=== PATIENT | male | born 1950 | race Caucasian/White ===

== ENCOUNTER 2017-06-10 10:01 | Day surgery (SDC) | payer MEDICARE, BC ==
[~2017-06-10] VITALS: Ht 170.2 cm; Wt 71.4 kg
[~2017-06-10 10:01] MED LIST: ASPI325 PO; FISH OIL 1,2001 EACH; Multiple Vitam1 EAC1 PO; PANT40 PO
== END 2017-06-10 12:12 | disposition home or self-care (01) ==
LOC: ORSCSDS 10:01
PROVIDERS: Internal Medicine Gastroenterology
PROC: 0DB58ZX Excision of Esophagus, Via Natural or Artificial Opening Endoscopic, Diagnostic (ICD-10-PCS; principal; 2017-06-10 11:30)
PROC: 0DB68ZX Excision of Stomach, Via Natural or Artificial Opening Endoscopic, Diagnostic (ICD-10-PCS; principal; 2017-06-10 11:30)
DX: K21.9 Gastro-esophageal reflux disease without esophagitis (principal); I25.10 Atherosclerotic heart disease of native coronary artery without angina pectoris; K29.80 Duodenitis without bleeding; K22.2 Esophageal obstruction; R13.10 Dysphagia, unspecified; E78.00 Pure hypercholesterolemia, unspecified; K44.9 Diaphragmatic hernia without obstruction or gangrene; Z79.82 Long term (current) use of aspirin
CPT/HCPCS: 88305; 88342; J7120

== ENCOUNTER 2022-10-03 13:41 | Emergency (ER) | payer MEDICARE, BC ==
[~2022-10-03] VITALS: Ht 177.8 cm; Wt 72.6 kg
[~2022-10-03 13:41] MED LIST changes: +OMEP20ER
[2022-10-03 14:27] LABS: Albumin, Blood 3.9 g/dL (3.4-5.0); Albumin/Globulin Ratio 1.3 (0.8-1.8); BASOPHILS ABSOLUTE AUTO 0.08 K/mm3 (0.00-0.23); BASOPHILS PERCENT AUTO 1 % (0-2); Bilirubin, Total 0.6 mg/dL (0.1-1.0); Bun/Creatinine Ratio 14.7 (12.0-20.0); Calcium, Blood 8.9 mg/dL (8.5-10.1); Creatinine, Blood 0.88 mg/dL (0.60-1.20); EOSINOPHILS ABSOLUTE AUTO 0.22 K/mm3 (0.00-0.68); EOSINOPHILS PERCENT AUTO 3 % (0-6); Globulin, Blood 3.1 g/dL (2.2-4.0); Hematocrit 45.1 % (37.0-53.0); Hemoglobin 15.4 g/dL (13.5-17.5); IMMATURE GRAN ABSOLUTE AUTO 0.08 K/mm3 (0.00-0.10); IMMATURE GRAN PERCENT AUTO 1 % (0-1); LYMPHOCYTES ABSOLUTE AUTO 2.27 K/mm3 (0.84-5.20); LYMPHOCYTES PERCENT AUTO 26 % (21-46); MONOCYTES ABSOLUTE AUTO 0.77 K/mm3 (0.16-1.47); MONOCYTES PERCENT AUTO 9 % (4-13); Mean Corpuscular HGB 29.7 pg (26.0-34.0); Mean Corpuscular HGB Conc 34.1 g/dL (31.5-36.5); Mean Corpuscular Volume 87 fL (80-100); NEUTROPHILS ABSOLUTE AUTO 5.39 K/mm3 (1.96-9.15); NEUTROPHILS PERCENT AUTO 61 % (41-73); RDW Coefficient Variation 13.2 % (11.7-14.2); RDW Standard Deviation 42.1 fL (35.1-46.3); Red Blood Cell Count 5.18 M/mm3 (4.30-5.90); White Blood Cell Count 8.81 K/mm3 (4.00-11.30)
[2022-10-03 15:02] LABS: Mean Platelet Volume 11.4 fL (9.1-12.4); Platelet Count 180 K/mm3 (150-400)
[2022-10-03 15:15] VITALS: BP 141/65
== END 2022-10-03 15:48 | disposition short-term general hospital (02) ==
LOC: ER 13:41
PROVIDERS: Emergency Medicine
DX: S02.19XB Other fracture of base of skull, initial encounter for open fracture (principal); S06.6X0A Traumatic subarachnoid hemorrhage without loss of consciousness, initial encounter; S02.0XXB Fracture of vault of skull, initial encounter for open fracture; S01.01XA Laceration without foreign body of scalp, initial encounter; G93.89 Other specified disorders of brain; W19.XXXA Unspecified fall, initial encounter
CPT/HCPCS: 12002; 70450; 71260; 72125; 80053; 84484; 85025; 90471; 90714; 93005; 93010; 96365-59; 96375-59; 99285-25; J0690; J1953; Q9967

== ENCOUNTER 2023-02-20 18:17 | Emergency (ER) | payer MEDICARE, BC ==
[~2023-02-20] VITALS: Ht 170.2 cm; Wt 72.6 kg
[2023-02-20 18:29] VITALS: BP 156/70
== END 2023-02-20 20:00 | disposition home or self-care (01) ==
LOC: ER 18:17
DX: S09.90XA Unspecified injury of head, initial encounter (principal); W22.8XXA Striking against or struck by other objects, initial encounter; Z79.899 Other long term (current) drug therapy
CPT/HCPCS: 99282

== ENCOUNTER 2023-05-06 09:12 | Emergency (ER) | payer MEDICARE, BC ==
[~2023-05-06] VITALS: Ht 170.2 cm; Wt 72.6 kg
[2023-05-06 10:28] LABS: BASOPHILS ABSOLUTE AUTO 0.07 K/mm3 (0.00-0.23); BASOPHILS PERCENT AUTO 1 % (0-2); EOSINOPHILS ABSOLUTE AUTO 0.14 K/mm3 (0.00-0.68); EOSINOPHILS PERCENT AUTO 2 % (0-6); Hematocrit 49.8 % (37.0-53.0); Hemoglobin 16.3 g/dL (13.5-17.5); IMMATURE GRAN ABSOLUTE AUTO 0.02 K/mm3 (0.00-0.10); IMMATURE GRAN PERCENT AUTO 0 % (0-1); LYMPHOCYTES ABSOLUTE AUTO 1.37 K/mm3 (0.84-5.20); LYMPHOCYTES PERCENT AUTO 23 % (21-46); MONOCYTES PERCENT AUTO 10 % (4-13); Mean Corpuscular HGB 29.8 pg (26.0-34.0); Mean Corpuscular HGB Conc 32.7 g/dL (31.5-36.5); Mean Corpuscular Volume 91 fL (80-100); Mean Platelet Volume 10.8 fL (9.1-12.4); NEUTROPHILS ABSOLUTE AUTO 3.66 K/mm3 (1.96-9.15); NEUTROPHILS PERCENT AUTO 63 % (41-73); Platelet Count 222 K/mm3 (150-400); RDW Coefficient Variation 13.6 % (11.7-14.2); RDW Standard Deviation 46.4 fL (35.1-46.3); Red Blood Cell Count 5.47 M/mm3 (4.30-5.90); White Blood Cell Count 5.86 K/mm3 (4.00-11.30)
[2023-05-06 10:52] LABS: Albumin/Globulin Ratio 1.2 (0.8-1.8); Bilirubin, Total 0.7 mg/dL (0.1-1.0); Bun/Creatinine Ratio 16.4 (12.0-20.0); Creatinine, Blood 0.79 mg/dL (0.60-1.20); Globulin, Blood 3.2 g/dL (2.2-4.0); Potassium, Blood 4.1 mmol/L (3.5-5.5); Total Protein, Blood 7.2 g/dL (6.4-8.2)
[2023-05-06 13:00] VITALS: BP 125/65
[2023-05-06] MEDS ORDERED: MOTION RELIEF25 MG PO (13:17)
== END 2023-05-06 13:25 | disposition home or self-care (01) ==
LOC: ER 09:12
PROVIDERS: Physician Assistant
DX: R42 Dizziness and giddiness (principal); I25.10 Atherosclerotic heart disease of native coronary artery without angina pectoris; Z95.5 Presence of coronary angioplasty implant and graft; Z79.899 Other long term (current) drug therapy
CPT/HCPCS: 70450; 71046; 80053; 83690; 84484; 85025; 93005; 93010; 99284-25; A9270

== ENCOUNTER 2023-05-22 22:21 | Emergency (ER) | payer MEDICARE, BC ==
[~2023-05-22] VITALS: Ht 170.2 cm; Wt 72.6 kg
[~2023-05-22 22:21] MED LIST changes: +MOTION RELIEF25 MG PO
[2023-05-22 22:26] VITALS: BP 148/72
== END 2023-05-23 00:27 | disposition home or self-care (01) ==
LOC: ER 22:21
DX: L29.9 Pruritus, unspecified (principal); I25.10 Atherosclerotic heart disease of native coronary artery without angina pectoris
CPT/HCPCS: 93005; 93010; 99283-25

== ENCOUNTER 2023-06-02 10:48 | Emergency (ER) | payer MEDICARE, BC ==
[~2023-06-02] VITALS: Ht 170.2 cm; Wt 70.8 kg
[2023-06-02 11:23] VITALS: BP 122/92
[2023-06-02] MEDS ORDERED: Robaxin750 MG PO (13:12)
== END 2023-06-02 13:25 | disposition home or self-care (01) ==
LOC: ER 10:48
DX: M25.551 Pain in right hip (principal); M54.50 Low back pain, unspecified; I25.10 Atherosclerotic heart disease of native coronary artery without angina pectoris; Z95.5 Presence of coronary angioplasty implant and graft
CPT/HCPCS: 73502; 96372; 99283-25; A9270; J1885

== ENCOUNTER → 2023-07-02 | Outpatient (CLI) | payer MEDICARE, BC ==
[~2023-07-02] MED LIST changes: +Robaxin750 MG PO
== END ==
LOC: LAB 12:31 → LAB SHORT 12:31
DX: R31.9 Hematuria, unspecified (principal)
CPT/HCPCS: 87086

== ENCOUNTER → 2023-07-03 | Outpatient (CLI) | payer MEDICARE, BC ==
[2023-07-05 23:35] LABS: APTIMA MEDIA TYPE Urine; C. TRACHOMATIS BY TMA Negative (Negative); N. GONORRHOEAE BY TMA Negative (Negative); SPECIMEN SOURCE Urine
== END ==
LOC: LAB 10:52 → LAB SHORT 10:52
PROVIDERS: Physician Assistant Surgical
DX: R31.9 Hematuria, unspecified (principal)
CPT/HCPCS: 87491; 87591

== ENCOUNTER → 2023-07-18 | Outpatient (CLI) | payer MEDICARE, BC ==
[~2023-07-18] MED LIST changes: +CEFP200 PO
[2023-07-18 09:47] LABS: Source, Urine Clean Catch
[2023-07-18 09:59] LABS: Leukocyte Esterase, Urine Neg (Neg)
[2023-07-18 10:00] LABS: Appearance, Urine Bloody (Clear); Bilirubin, Urine Neg (Neg); Blood, Urine 2+ (Neg); Color, Urine Red (P-Yellow); Glucose Qualitative, Urine Neg (Normal); Ketones, Urine Neg (Neg); Nitrite, Urine Neg (Neg); Protein, Urine 2+ (Neg); Urobilinogen, Urine NORM (Normal)
[2023-07-18 10:01] LABS: Bacteria Mod /hpf; Red Blood Cells, Urine TNTC /hpf (0-2); Squamous Epithelial Cells Few /hpf (Few); White Blood Cells, Urine 0-2 /hpf (0-5)
== END | disposition home or self-care (01) ==
LOC: LAB SHORT 09:39 → LAB 09:39
PROVIDERS: Physician Assistant Surgical
DX: N39.0 Urinary tract infection, site not specified (principal); R31.9 Hematuria, unspecified
CPT/HCPCS: 81001; 87086

== ENCOUNTER 2023-07-19 00:47 | Emergency (ER) | payer MEDICARE, BC ==
[~2023-07-19] VITALS: Ht 170.2 cm; Wt 72.6 kg
[~2023-07-19 00:47] MED LIST changes: -CEFP200 PO
[2023-07-19 02:45] VITALS: BP 141/70
[2023-07-19 02:58] LABS: Source, Urine Clean Catch
[2023-07-19 03:21] LABS: Bilirubin, Urine Neg (Neg); Blood, Urine 5+ (Neg); Glucose Qualitative, Urine 1+ (Neg); Ketones, Urine Neg (Neg); Leukocyte Esterase, Urine 1+ (Neg); Nitrite, Urine Pos (Neg); Protein, Urine 4+ (Neg); Urobilinogen, Urine NORM (Normal)
[2023-07-19 03:22] LABS: Appearance, Urine Bloody (Clear); Color, Urine Red (P-Yellow)
[2023-07-19 03:23] LABS: Red Blood Cells, Urine TNTC /hpf (0-2)
[2023-07-19 03:24] LABS: Bacteria Few /hpf; Squamous Epithelial Cells Rare /hpf (Few)
[2023-07-19 03:47] LABS: BASOPHILS ABSOLUTE AUTO 0.08 K/mm3 (0.00-0.23); BASOPHILS PERCENT AUTO 1 % (0-2); EOSINOPHILS ABSOLUTE AUTO 0.19 K/mm3 (0.00-0.68); EOSINOPHILS PERCENT AUTO 3 % (0-6); Hematocrit 44.3 % (37.0-53.0); Hemoglobin 15.1 g/dL (13.5-17.5); IMMATURE GRAN ABSOLUTE AUTO 0.06 K/mm3 (0.00-0.10); IMMATURE GRAN PERCENT AUTO 1 % (0-1); LYMPHOCYTES PERCENT AUTO 31 % (21-46); MONOCYTES ABSOLUTE AUTO 0.66 K/mm3 (0.16-1.47); MONOCYTES PERCENT AUTO 10 % (4-13); Mean Corpuscular HGB 30.4 pg (26.0-34.0); Mean Corpuscular HGB Conc 34.1 g/dL (31.5-36.5); Mean Corpuscular Volume 89 fL (80-100); Mean Platelet Volume 10.5 fL (9.1-12.4); NEUTROPHILS ABSOLUTE AUTO 3.57 K/mm3 (1.96-9.15); NEUTROPHILS PERCENT AUTO 54 % (41-73); Platelet Count 199 K/mm3 (150-400); RDW Coefficient Variation 13.3 % (11.7-14.2); RDW Standard Deviation 43.8 fL (35.1-46.3); Red Blood Cell Count 4.96 M/mm3 (4.30-5.90); White Blood Cell Count 6.56 K/mm3 (4.00-11.30)
[2023-07-19 04:09] LABS: Albumin, Blood 3.7 g/dL (3.4-5.0); Albumin/Globulin Ratio 1.3 (0.8-1.8); Bilirubin, Total 0.6 mg/dL (0.1-1.0); Bun/Creatinine Ratio 18.8 (12.0-20.0); Creatinine, Blood 0.85 mg/dL (0.60-1.20); Globulin, Blood 2.9 g/dL (2.2-4.0); Potassium, Blood 3.9 mmol/L (3.5-5.5); Total Protein, Blood 6.6 g/dL (6.4-8.2)
[2023-07-19] MEDS ORDERED: CefTRIAXone Sodium 1,000 MG in NS 50 ML IV ONE (05:25)
[2023-07-19] MEDS ORDERED: CEFP200 PO (05:36)
== END 2023-07-19 05:49 | disposition home or self-care (01) ==
LOC: ER 00:47
PROVIDERS: Emergency Medicine
DX: N39.0 Urinary tract infection, site not specified (principal); N40.0 Benign prostatic hyperplasia without lower urinary tract symptoms; I25.10 Atherosclerotic heart disease of native coronary artery without angina pectoris; Z79.899 Other long term (current) drug therapy
CPT/HCPCS: 74177; 80053; 81001; 85025; 87086; 96374-59; 99284-25; J0696; Q9967

== ENCOUNTER 2023-07-26 14:34 | Emergency (ER) | payer MEDICARE, BC ==
[~2023-07-26] VITALS: Ht 170.2 cm; Wt 72.6 kg
[~2023-07-26 14:34] MED LIST changes: +CEFP200 PO
[2023-07-26 15:46] LABS: Source, Urine Clean Catch
[2023-07-26 15:53] LABS: Appearance, Urine Hazy (Clear); Bilirubin, Urine Neg (Neg); Blood, Urine 5+ (Neg); Glucose Qualitative, Urine Neg (Neg); Ketones, Urine Neg (Neg); Leukocyte Esterase, Urine Neg (Neg); Nitrite, Urine Neg (Neg); Protein, Urine 1+ (Neg); Specific Gravity, Urine 1.015 (1.003-1.022); Urobilinogen, Urine NORM (Normal)
[2023-07-26 16:07] LABS: Color, Urine Pale Yellow (P-Yellow)
[2023-07-26 16:09] LABS: Amorphous Light (0-Heavy); Bacteria Mod /hpf; Mucus Light (0-Heavy); Red Blood Cells, Urine TNTC /hpf (0-2); Squamous Epithelial Cells Rare /hpf (Few); White Blood Cells, Urine 0-2 /hpf (0-5)
[2023-07-26 16:11] LABS: Transitional Epithelial Cells Rare /hpf (0-Rare)
[2023-07-26 19:00] VITALS: BP 139/63
== END 2023-07-26 19:08 | disposition home or self-care (01) ==
LOC: ER 14:34
PROVIDERS: Physician Assistant
DX: R31.0 Gross hematuria (principal); N50.811 Right testicular pain; I25.10 Atherosclerotic heart disease of native coronary artery without angina pectoris; Z87.440 Personal history of urinary (tract) infections; Z87.718 Personal history of other specified (corrected) congenital malformations of genitourinary system; Z79.899 Other long term (current) drug therapy
CPT/HCPCS: 81001; 87086; 99283

== ENCOUNTER 2023-11-23 11:24 | Emergency (ER) | payer MEDICARE, BC ==
[~2023-11-23] VITALS: Ht 170.2 cm; Wt 70.3 kg
[2023-11-23 11:33] VITALS: BP 137/64
[2023-11-23] MEDS ORDERED: Triamcinolone Inj Susp 40 MG / ML 1ML Vial IM ONE (11:40)
== END 2023-11-23 11:49 | disposition home or self-care (01) ==
LOC: ER 11:24
DX: L23.7 Allergic contact dermatitis due to plants, except food (principal); Z79.899 Other long term (current) drug therapy
CPT/HCPCS: 96372; 99282; 99282-25; J3301

== ENCOUNTER 2024-01-31 19:01 | Emergency (ER) | payer MEDICARE, BC ==
[~2024-01-31] VITALS: Ht 170.2 cm; Wt 68.0 kg
[2024-01-31 19:13] VITALS: BP 150/58
[2024-01-31] MEDS ORDERED: Betamethasone Sod Phos/Acetate 6 MG/ML 5ML VIAL IM ONE (20:05)
[2024-01-31] MEDS ORDERED: Triamcinolone Inj Susp 40 MG / ML 1ML Vial IM ONE (20:05)
== END 2024-01-31 20:17 | disposition home or self-care (01) ==
LOC: ER 19:01
DX: L25.9 Unspecified contact dermatitis, unspecified cause (principal)
CPT/HCPCS: 96372; 99282-25; J0702; J3301